=== PATIENT | female | born 1960 | race African-American/Black ===

== ENCOUNTER 2023-09-11 21:05 | Inpatient (IN) | payer OTHER ==
[2023-09-11] MEDS: ONDANSETRON 4 MG/2 ML VIAL IVPUSH ONE (21:48)
[2023-09-11 22:12] LABS: BASO % 0.8 % (0-2.0); EOS % 1.2 % (0-4.5); HEMATOCRIT 33.4 % (32.4-45.2); HEMOGLOBIN 10.8 GM/dL (10.7-15.3); LYMPH % 17.6 % (8-40); MCH 25.7 pg (25.7-33.7); MCHC 32.4 g/dl (32.0-36.0); MEAN CELL VOLUME 79.3 fl (80-96); MEAN PLT VOLUME 9.3 fl (7.5-11.1); MONO % 6.3 % (3.8-10.2); NEUT % 74.1 % (42.8-82.8); PLATELET COUNT 336 10^3/uL (134-434); RDW 16.2 % (11.6-15.6); WHITE BLOOD COUNT 10.6 K/mm3 (4.0-10.0)
[2023-09-11 22:16] LABS: INR 1.04 (0.83-1.09); PROTHROMBIN TIME (PATIENT) 11.9 SEC (9.7-13.0)
[2023-09-11 22:19] LABS: ACTIVATED PTT 26.2 SECONDS (25.2-36.5)
[2023-09-11 22:29] LABS: POTASSIUM 4.6 mmol/L (3.5-5.1)
[2023-09-11] MEDS ORDERED: hydrALAZINE HCL 20 MG/ML VIAL ONE ×2 (22:29→23:53)
[2023-09-11 22:31] LABS: BLOOD UREA NITROGEN 65.2 mg/dL (7-18); CALCIUM 8.5 mg/dL (8.5-10.1); MAGNESIUM 2.2 mg/dL (1.8-2.4)
[2023-09-11 22:32] LABS: ALBUMIN 3.2 g/dl (3.4-5.0)
[2023-09-11 22:35] LABS: CREATININE 6.5 mg/dL (0.55-1.3)
[2023-09-11] MEDS: hydrALAZINE HCL 20 MG/ML VIAL IVPUSH ONE ×2 (22:35→23:57)
[2023-09-11 22:36] LABS: BILIRUBIN,TOTAL 0.3 mg/dL (0.2-1); TOT PROT 8.2 g/dl (6.4-8.2)
[2023-09-11] MEDS ORDERED: CARVEDILOL 6.25 MG TABLET (FP) ONE (22:55)
[2023-09-11] MEDS: CARVEDILOL 12.5 MG TABLET (FP) PO ONE (23:00)
[2023-09-12 00:18] LABS: EPI CELLS 5 /uL (0-25.1); HYALINE CASTS 0 /uL (0-3.1); PH,URINE 6.5 (5.0-8.0); URINE APPEARANCE CLEAR; URINE BACTERIA 23 /uL (0-1359); URINE BILIRUBIN NEGATIVE (NEGATIVE); URINE COLOR YELLOW; URINE GLUCOSE (UA) NEGATIVE (NEGATIVE); URINE KETONE NEGATIVE (NEGATIVE); URINE LEUK ESTERASE NEGATIVE (NEGATIVE); URINE NITRITE NEGATIVE (NEGATIVE); URINE PROTEIN 3+ (NEGATIVE); URINE RBC 30 /uL (0-23.9); URINE UROBILINOGEN 0.2 mg/dL (0.2-1.0); URINE WBC 10 /uL (0-25.8)
[2023-09-12] MEDS ORDERED: ONDANSETRON 4 MG/2 ML VIAL IVPUSH PRN (00:45)
[2023-09-12] MEDS: NICARDIPINE 25 MG in DEXTROSE 5%-WATER - 240 ML IVPB SCH ×3 (00:55→06:53)
[2023-09-12] MEDS: MUPIROCIN 2% TOPICAL OINTMENT FOR DECOLONIZATION NS SCH (02:08)
[2023-09-12] MEDS: HEPARIN NA (PORCINE) 5,000 UNITS/ML 1ML VIAL SQ SCH (06:27)
[2023-09-12] MEDS: hydrALAZINE HCL 25 MG TABLET (FP) PO SCH ×2 (06:27→21:16)
[2023-09-12 06:44] LABS: BASO % 1.2 % (0-2.0); EOS % 1.9 % (0-4.5); HEMATOCRIT 33.9 % (32.4-45.2); HEMOGLOBIN 10.8 GM/dL (10.7-15.3); LYMPH % 17.9 % (8-40); MCH 25.6 pg (25.7-33.7); MEAN CELL VOLUME 80.2 fl (80-96); MEAN PLT VOLUME 9.1 fl (7.5-11.1); MONO % 7.1 % (3.8-10.2); NEUT % 71.9 % (42.8-82.8); PLATELET COUNT 337 10^3/uL (134-434); RBC 4.23 M/mm3 (3.60-5.2); RDW 15.8 % (11.6-15.6); WHITE BLOOD COUNT 12.3 K/mm3 (4.0-10.0)
[2023-09-12 07:05] LABS: POTASSIUM 4.3 mmol/L (3.5-5.1)
[2023-09-12 07:07] LABS: ALBUMIN 3.1 g/dl (3.4-5.0); CALCIUM 8.5 mg/dL (8.5-10.1)
[2023-09-12 07:08] LABS: MAGNESIUM 2.2 mg/dL (1.8-2.4)
[2023-09-12 07:10] LABS: CREATININE 6.1 mg/dL (0.55-1.3)
[2023-09-12 07:11] LABS: PHOSPHOROUS 4.6 mg/dL (2.5-4.9)
[2023-09-12 07:12] LABS: BILIRUBIN,TOTAL 0.4 mg/dL (0.2-1); TOT PROT 7.8 g/dl (6.4-8.2)
[2023-09-12 07:16] LABS: N-TERMINAL BNP 16950.9 pg/ml (5-125)
[2023-09-12] MEDS: FUROSEMIDE 40 MG/4 ML INJECTABLE VIAL IVPUSH ONE (08:23)
[2023-09-12] MEDS: CARVEDILOL 12.5 MG TABLET (FP) PO SCH (10:14)
[2023-09-12 14:19] VITALS: BMI 32.3
[2023-09-12] MEDS: hydrALAZINE HCL 50 MG TABLET (FP) PO ONE (18:10)
[2023-09-12] MEDS: CHLORHEXIDINE GLUCONATE 4% CLEANSER FOR DECOLONIZATION TP SCH (21:17)
[2023-09-13 07:45] LABS: POTASSIUM 4.6 mmol/L (3.5-5.1)
[2023-09-13 07:50] LABS: ALBUMIN 2.9 g/dl (3.4-5.0)
[2023-09-13 07:51] LABS: BLOOD UREA NITROGEN 61.8 mg/dL (7-18); MAGNESIUM 1.9 mg/dL (1.8-2.4)
[2023-09-13 07:53] LABS: CREATININE 6.4 mg/dL (0.55-1.3)
[2023-09-13 07:54] LABS: PHOSPHOROUS 5.2 mg/dL (2.5-4.9)
[2023-09-13 07:55] LABS: BILIRUBIN,TOTAL 0.4 mg/dL (0.2-1); TOT PROT 7.4 g/dl (6.4-8.2)
[2023-09-13 08:09] LABS: BASO % 0.3 % (0-2.0); EOS % 2.1 % (0-4.5); HEMATOCRIT 31.3 % (32.4-45.2); HEMOGLOBIN 10.3 GM/dL (10.7-15.3); MCH 25.9 pg (25.7-33.7); MCHC 32.7 g/dl (32.0-36.0); MEAN CELL VOLUME 79.2 fl (80-96); MEAN PLT VOLUME 9.5 fl (7.5-11.1); MONO % 8.4 % (3.8-10.2); NEUT % 64.2 % (42.8-82.8); PLATELET COUNT 328 10^3/uL (134-434); RBC 3.96 M/mm3 (3.60-5.2); RDW 15.4 % (11.6-15.6)
[2023-09-13] MEDS ORDERED: hydrALAZINE HCL 25 MG TABLET (FP) PO SCH (10:00)
[2023-09-13] MEDS: NIFEdipine E.R. 30 MG TABLET PO SCH (10:08)
[2023-09-13] MEDS: hydrALAZINE HCL 20 MG/ML VIAL IVPUSH ONE (11:30)
[2023-09-13] MEDS: hydrALAZINE HCL 50 MG TABLET (FP) PO SCH (13:32)
[2023-09-13] MEDS: hydrALAZINE HCL 20 MG/ML VIAL IVPUSH PRN ×2 (14:25→18:30)
[2023-09-13 17:59] LABS: EPI CELLS 20 /uL (0-25.1); HYALINE CASTS 0 /uL (0-3.1); PH,URINE 6.5 (5.0-8.0); URINE APPEARANCE CLEAR; URINE BACTERIA 126 /uL (0-1359); URINE BILIRUBIN NEGATIVE (NEGATIVE); URINE COLOR YELLOW; URINE GLUCOSE (UA) NEGATIVE (NEGATIVE); URINE KETONE NEGATIVE (NEGATIVE); URINE LEUK ESTERASE TRACE (NEGATIVE); URINE NITRITE NEGATIVE (NEGATIVE); URINE PROTEIN 3+ (NEGATIVE); URINE RBC 24 /uL (0-23.9); URINE UROBILINOGEN 0.2 mg/dL (0.2-1.0); URINE WBC 34 /uL (0-25.8)
[2023-09-13] MEDS: CARVEDILOL 25 MG TABLET (FP) PO SCH (20:11)
[2023-09-13] MEDS ORDERED: BENZOCAINE/MENTHOL 1 EACH LOZENGE MM PRN (20:58)
[2023-09-13] MEDS: MELATONIN 5 MG TABLETS PO PRN (21:51)
[2023-09-13] MEDS: BENZOCAINE/MENTH/CETYLPYRD CL 1 EACH LOZENGE MM PRN (21:51)
[2023-09-14 07:13] LABS: BASO % 0.6 % (0-2.0); EOS % 1.4 % (0-4.5); HEMATOCRIT 31.9 % (32.4-45.2); HEMOGLOBIN 10.4 GM/dL (10.7-15.3); LYMPH % 22.8 % (8-40); MCH 26.1 pg (25.7-33.7); MCHC 32.5 g/dl (32.0-36.0); MEAN CELL VOLUME 80.2 fl (80-96); MEAN PLT VOLUME 9.1 fl (7.5-11.1); MONO % 7.8 % (3.8-10.2); NEUT % 67.4 % (42.8-82.8); PLATELET COUNT 322 10^3/uL (134-434); RBC 3.98 M/mm3 (3.60-5.2); RDW 15.5 % (11.6-15.6); WHITE BLOOD COUNT 10.6 K/mm3 (4.0-10.0)
[2023-09-14 07:33] LABS: POTASSIUM 4.6 mmol/L (3.5-5.1)
[2023-09-14 07:38] LABS: BLOOD UREA NITROGEN 58.6 mg/dL (7-18); CALCIUM 8.5 mg/dL (8.5-10.1)
[2023-09-14 07:39] LABS: ALBUMIN 2.9 g/dl (3.4-5.0); MAGNESIUM 1.9 mg/dL (1.8-2.4)
[2023-09-14 07:41] LABS: CREATININE 6.1 mg/dL (0.55-1.3); PHOSPHOROUS 5.5 mg/dL (2.5-4.9)
[2023-09-14 07:43] LABS: BILIRUBIN,TOTAL 0.5 mg/dL (0.2-1); TOT PROT 7.4 g/dl (6.4-8.2)
[2023-09-14] MEDS: NIFEdipine E.R 60 MG TABLET PO SCH ×2 (09:43→21:14)
[2023-09-14] MEDS: MAGNESIUM SULF 50% (8.12 MEQ/2 ML-1 GM VIAL) IVPB ONE (15:09)
[2023-09-14] MEDS: hydrALAZINE HCL 50 MG TABLET (FP) PO SCH (21:13)
[2023-09-14] MEDS: HEPARIN NA (PORCINE) 5,000 UNITS/ML 1ML VIAL SQ SCH (21:14)
[2023-09-14] MEDS ORDERED: MUPIROCIN 2% TOPICAL OINTMENT FOR DECOLONIZATION NS SCH (22:00)
[2023-09-14] MEDS ORDERED: CHLORHEXIDINE GLUCONATE 4% CLEANSER FOR DECOLONIZATION TP SCH (22:00)
[2023-09-15 06:31] VITALS: PULSE 70
[2023-09-15 07:19] LABS: BASO % 0.5 % (0-2.0); EOS % 2.1 % (0-4.5); HEMATOCRIT 31.6 % (32.4-45.2); HEMOGLOBIN 10.2 GM/dL (10.7-15.3); LYMPH % 23.6 % (8-40); MCH 25.8 pg (25.7-33.7); MCHC 32.4 g/dl (32.0-36.0); MEAN CELL VOLUME 79.5 fl (80-96); MEAN PLT VOLUME 9.3 fl (7.5-11.1); NEUT % 64.8 % (42.8-82.8); PLATELET COUNT 334 10^3/uL (134-434); RBC 3.98 M/mm3 (3.60-5.2); RDW 15.1 % (11.6-15.6); WHITE BLOOD COUNT 9.2 K/mm3 (4.0-10.0)
[2023-09-15 07:37] LABS: CHLORIDE 104 mmol/L (98-107); SODIUM 136 mmol/L (136-145)
[2023-09-15 07:57] LABS: ALBUMIN 2.8 g/dl (3.4-5.0); ANION GAP 10 mmol/L (4-13); CALCIUM 8.3 mg/dL (8.5-10.1); CO2 22 mmol/L (21-32)
[2023-09-15 07:58] LABS: GLUCOSE,RANDOM 103 mg/dL (74-106)
[2023-09-15 08:00] LABS: CREATININE 5.8 mg/dL (0.55-1.3); SGOT/AST 7 U/L (15-37); SGPT/ALT 10 U/L (13-61)
[2023-09-15 08:01] LABS: CHOLESTEROL 214 mg/dL (50-200); PHOSPHOROUS 5.3 mg/dL (2.5-4.9); TOT PROT 7.3 g/dl (6.4-8.2)
[2023-09-15 08:02] LABS: LDL CHOLESTEROL (ONLY SJRH) 135 mg/dL (5-100)
[2023-09-15 08:03] LABS: BILIRUBIN,TOTAL 0.3 mg/dL (0.2-1)
[2023-09-15 08:04] LABS: ALK PHOS 93 U/L (45-117)
[2023-09-15 08:05] LABS: HDL CHOLESTEROL 59 mg/dL (40-60)
[2023-09-15 08:14] VITALS: BP 128/64; RESP 16; TEMP 99.1
[2023-09-15] MEDS ORDERED: guaiFENesin/CODEINE 5 ML UNIT-DOSE CUPS PO PRN (15:32)
[2023-09-15] MEDS: guaiFENesin/CODEINE 5 ML UNIT-DOSE CUPS PO SCH (16:00)
[2023-09-15 22:06] LABS: ANTIGLOMERULAR BASEMENT MEN.AB <0.2 units (0.0-0.9)
[2023-09-17 14:09] LABS: C-ANCA <1:20 titer (Neg:<1:20)
[2023-09-17 17:10] LABS: FREE KAPPA,SERUM 168.2 mg/L (3.3-19.4)
== END 2023-09-15 18:24 | disposition home or self-care (01) | DRG 199 ==
LOC: JER 21:05 → JERBED 09-12 00:11 → JICU 09-12 01:17 → J4W 09-14 16:24
PROVIDERS: ADMIT Internal Medicine Pulmonary Disease; ATTEND Internal Medicine
DX: I16.1 Hypertensive emergency (principal); I24.89 Other forms of acute ischemic heart disease; I47.20 Ventricular tachycardia, unspecified; N17.9 Acute kidney failure, unspecified; I31.39 Other pericardial effusion (noninflammatory); I42.9 Cardiomyopathy, unspecified; N18.5 Chronic kidney disease, stage 5; E78.5 Hyperlipidemia, unspecified; I12.0 Hypertensive chronic kidney disease with stage 5 chronic kidney disease or end stage renal disease
CPT/HCPCS: 0241U-QW; 36415; 70450-TC; 71045-TC-FY; 76512; 76775-TC; 76856-TC; 80053; 80061; 81003; 82232; 82436; 82570; 82962; 83516; 83520; 83735; 83880; 83883; 83935; 84100; 84133; 84155; 84156; 84165; 84300; 84439; 84443; 84484; 85025; 85610; 85730; 86038; 86160; 86225; 86256; 86431; 86850; 86900; 86901; 93005; 93010; 93306-TC; 94010; 94660; 99291; J1644